=== PATIENT | female | born 1965 | race Caucasian/White ===

== ENCOUNTER → 2016-11-11 | Outpatient (CLI) | payer OTHER ==
--- NOTE | ~2016-11-11 | MY11 ---
[facility] A Service of [facility] RADIOLOGY TEXT RESULTS PATIENT: BRENT ROMO LOCATION: [facility] : 63 UNIT #: [id number] AGE: [address]: Syd Maher MD SEX: F ORDER DR: [id number] [facility]. [place], [place] [address] [id number] O MR#: [id number] Acc #: [id number] NAME: BRENT ROMO : 1965 SEX: F STUDY DATE/TIME: 11/11/2016 16:47 UNIT: [facility] ROOM: STUDY DESCRIPTION: MY Mammogram Screening Dig Saul Attending Physician: Syd Maher M.D. Ordering Physician: Syd Maher M.D. Primary Care Physician: Abelino Marcelo M.D. MEDICAL IMAGING REPORT This report is preliminary unless electronic signature is present EXAM Bilateral digital screening mammogram with CAD INDICATION Breast cancer screening. 50-year-old asymptomatic female. No personal or family history of breast cancer. COMPARISONS November 09, 2015, November 04, 2014, October 24, 2013, October 01, 2012, September 30, 2011, September 24, 2010, September 22, 2009, July 21, 2008, July 07, 2007. FINDINGS There are scattered fibroglandular tissues. No suspicious findings are present. IMPRESSION No mammographic evidence of malignancy. Annual screening mammography and clinical breast exam are recommended. A result letter will be sent to the patient. Patients over the age of 40 are entered into a reminder system with target due date for the next mammogram. BIRADS: 1 Negative Dictated by... Orlando Henderson M.D. THIS IS AN ELECTRONICALLY VERIFIED REPORT Orlando Henderson M.D. at 11/14/2016 5:24 PM [facility]/kadew [facility] A Service [facility] RADIOLOGY TEXT RESULTS PATIENT: BRENT ROMO LOCATION: [facility] : 63 UNIT #: [id number] AGE: [address]: Syd Maher MD SEX: F ORDER DR: TD: 11/14/2016 10:01 JOB #: [id number] MEDICAL IMAGING REPORT Page 1 of 1 COPY
== END | disposition home or self-care (01) ==
LOC: CWCC 16:26
DX: Z12.31 Encounter for screening mammogram for malignant neoplasm of breast (principal)
CPT/HCPCS: G0202